=== PATIENT | female | born 1955 | race Caucasian/White ===

== ENCOUNTER → 2021-01-02 | Outpatient (CLI) | payer OTHER | LOC: M.WC 09:51 | PROVIDERS: ATTEND Surgery | DX: T21.35XA Burn of third degree of buttock, initial encounter (principal); T31.10 Burns involving 10-19% of body surface with 0% to 9% third degree burns; E78.5 Hyperlipidemia, unspecified; I10 Essential (primary) hypertension; I73.9 Peripheral vascular disease, unspecified; I89.0 Lymphedema, not elsewhere classified; I25.2 Old myocardial infarction; M19.90 Unspecified osteoarthritis, unspecified site; M10.9 Gout, unspecified; F32.9 Major depressive disorder, single episode, unspecified; F41.9 Anxiety disorder, unspecified; Z85.3 Personal history of malignant neoplasm of breast; Z98.49 Cataract extraction status, unspecified eye; Z87.891 Personal history of nicotine dependence; Z79.82 Long term (current) use of aspirin; X08.8XXA Exposure to other specified smoke, fire and flames, initial encounter; Y93.89 Activity, other specified; Y92.89 Other specified places as the place of occurrence of the external cause; Y99.8 Other external cause status ==

== ENCOUNTER → 2021-01-16 | Outpatient (CLI) | payer OTHER | LOC: M.WC 09:42 | PROVIDERS: ATTEND Surgery | DX: T21.35XD Burn of third degree of buttock, subsequent encounter (principal); T31.10 Burns involving 10-19% of body surface with 0% to 9% third degree burns; E78.5 Hyperlipidemia, unspecified; I10 Essential (primary) hypertension; I73.9 Peripheral vascular disease, unspecified; I89.0 Lymphedema, not elsewhere classified; I25.2 Old myocardial infarction; M19.90 Unspecified osteoarthritis, unspecified site; M10.9 Gout, unspecified; F32.9 Major depressive disorder, single episode, unspecified; F41.9 Anxiety disorder, unspecified; Z85.3 Personal history of malignant neoplasm of breast; Z98.49 Cataract extraction status, unspecified eye; Z87.891 Personal history of nicotine dependence; Z79.82 Long term (current) use of aspirin; X08.8XXD Exposure to other specified smoke, fire and flames, subsequent encounter ==

== ENCOUNTER → 2021-01-23 | Outpatient (CLI) | payer OTHER | LOC: M.WC 09:40 | PROVIDERS: ATTEND Surgery | DX: T21.35XD Burn of third degree of buttock, subsequent encounter (principal); T31.10 Burns involving 10-19% of body surface with 0% to 9% third degree burns; E78.5 Hyperlipidemia, unspecified; I10 Essential (primary) hypertension; I73.9 Peripheral vascular disease, unspecified; I89.0 Lymphedema, not elsewhere classified; I25.2 Old myocardial infarction; M19.90 Unspecified osteoarthritis, unspecified site; M10.9 Gout, unspecified; F32.9 Major depressive disorder, single episode, unspecified; F41.9 Anxiety disorder, unspecified; Z85.3 Personal history of malignant neoplasm of breast; Z98.49 Cataract extraction status, unspecified eye; Z87.891 Personal history of nicotine dependence; Z79.82 Long term (current) use of aspirin; X08.8XXD Exposure to other specified smoke, fire and flames, subsequent encounter ==

== ENCOUNTER → 2021-01-30 | Day surgery (SDC) | payer OTHER ==
[~2021-01-30] MED LIST: ASA81BEC PO; ATENOLOL 25 MG25 M1 PO; B COMPLEX1 EACH PO; CALCIUM CITRAT250 MG PO; FISH OIL 1,001000 M3 PO; FOSAMAX 70 MG T70 MG PO; LOSARTAN POTASS50 MG PO; NEURONTIN 300M300 M2 PO; NORCO5 PO; OXYBUTYNIN 5 MG5 M2 PO; UNICOMPLEX M TA1 TA1 PO; VALACYCLOVIR500 MG PO; VENLAFAXINE HC150 MG PO; VITAMIN D-40010 MCG PO; ZOCOR20 MG PO
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
[2021-01-30 09:54] LABS: HEMATOCRIT 35.9 % (37.0-47.0); HEMOGLOBIN 11.9 gm/dL (12.0-15.0); MCH 29.4 pg (26.0-34.0); MCV 89.3 fL (80.0-100.0); MPV 6.4 fl. (7.2-11.1); RBC 4.03 mil/uL (4.20-5.00); RDW-CV 15.2 % (10.5-14.5); WBC 8.9 thou/uL (4.0-11.0)
[2021-01-30 10:00] LABS: CALCIUM 9.8 mg/dL (8.5-10.1); CREATININE 0.6 mg/dL (0.6-1.3); POTASSIUM 3.4 mmol/L (3.5-5.1)
--- NOTE | 2021-01-30 15:43 | EKG ---
[place] [address] ELECTROCARDIOGRAM REPORT Name: GENNA OCAMPO Room: [facility]#: [id number] Admission: 01/30/21 Attend Phys: Alfa Weeks MD Discharge: Date of : 53 Date of Service: 01/30/21 1041 Report #: [id number] THIS REPORT FOR: //name// [facility] Test Date: 2021-01-30 Test Time: 10:41:51 Pat Name: GENNA OCAMPO Department: Room: Gender: Pharmacy Operations Coordinator: Bulmaro Cerrato : 1955 Requested By: Constance Hand Order Number: [id number] Aldair MD: Cecil Dudley Measurements Intervals [place] Rate: 89 P: 62 CA: 133 QRS: 52 QRSD: 82 T: 29 QT: 367 QTc: 447 Interpretive Statements Sinus rhythm Probable left atrial enlargement Low voltage, extremity leads No previous ECG available for comparison Electronically Signed On 01-30-2021 15:42:53 CDT by Cecil Dudley [email or web address] <ELECTRONICALLY SIGNED> By: Cecil Dudley MD, [facility] 01/30/21 1542 1041 1041 Cecil Dduley MD, [facility] /EPI
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
== END | disposition home or self-care (01) ==
LOC: M.SUR 06:07
PROVIDERS: Anesthesiology; ATTEND Anesthesiology
DX: T21.05XA Burn of unspecified degree of buttock, initial encounter (principal); L90.5 Scar conditions and fibrosis of skin; Z98.890 Other specified postprocedural states; Z79.899 Other long term (current) drug therapy

== ENCOUNTER → 2021-02-06 | Outpatient (CLI) | payer OTHER | LOC: M.WC 09:45 | PROVIDERS: ATTEND Surgery | DX: T21.35XD Burn of third degree of buttock, subsequent encounter (principal); T31.10 Burns involving 10-19% of body surface with 0% to 9% third degree burns; E78.5 Hyperlipidemia, unspecified; I10 Essential (primary) hypertension; I73.9 Peripheral vascular disease, unspecified; I89.0 Lymphedema, not elsewhere classified; I25.2 Old myocardial infarction; M19.90 Unspecified osteoarthritis, unspecified site; M10.9 Gout, unspecified; F32.9 Major depressive disorder, single episode, unspecified; F41.9 Anxiety disorder, unspecified; Z85.3 Personal history of malignant neoplasm of breast; Z98.49 Cataract extraction status, unspecified eye; Z87.891 Personal history of nicotine dependence; Z79.82 Long term (current) use of aspirin; X08.8XXD Exposure to other specified smoke, fire and flames, subsequent encounter ==

== ENCOUNTER → 2021-02-13 | Outpatient (CLI) | payer OTHER | LOC: M.WC 08:21 | PROVIDERS: ATTEND Internal Medicine | DX: T21.35XD Burn of third degree of buttock, subsequent encounter (principal); T31.10 Burns involving 10-19% of body surface with 0% to 9% third degree burns; E78.5 Hyperlipidemia, unspecified; I10 Essential (primary) hypertension; I73.9 Peripheral vascular disease, unspecified; I89.0 Lymphedema, not elsewhere classified; I25.2 Old myocardial infarction; M19.90 Unspecified osteoarthritis, unspecified site; M10.9 Gout, unspecified; F32.9 Major depressive disorder, single episode, unspecified; F41.9 Anxiety disorder, unspecified; Z85.3 Personal history of malignant neoplasm of breast; Z98.49 Cataract extraction status, unspecified eye; Z87.891 Personal history of nicotine dependence; Z79.82 Long term (current) use of aspirin; X08.8XXD Exposure to other specified smoke, fire and flames, subsequent encounter ==

== ENCOUNTER → 2021-02-20 | Outpatient (CLI) | payer OTHER | LOC: M.WC 09:21 | PROVIDERS: ATTEND Internal Medicine | DX: T21.35XD Burn of third degree of buttock, subsequent encounter (principal); T31.10 Burns involving 10-19% of body surface with 0% to 9% third degree burns; E78.5 Hyperlipidemia, unspecified; I10 Essential (primary) hypertension; I73.9 Peripheral vascular disease, unspecified; I89.0 Lymphedema, not elsewhere classified; I25.2 Old myocardial infarction; M19.90 Unspecified osteoarthritis, unspecified site; M10.9 Gout, unspecified; F32.9 Major depressive disorder, single episode, unspecified; F41.9 Anxiety disorder, unspecified; Z85.3 Personal history of malignant neoplasm of breast; Z98.49 Cataract extraction status, unspecified eye; Z87.891 Personal history of nicotine dependence; Z79.82 Long term (current) use of aspirin; X08.8XXD Exposure to other specified smoke, fire and flames, subsequent encounter ==

== ENCOUNTER → 2021-03-06 | Outpatient (CLI) | payer OTHER | LOC: M.WC 09:51 | PROVIDERS: ATTEND Surgery | DX: T21.35XD Burn of third degree of buttock, subsequent encounter (principal); T31.10 Burns involving 10-19% of body surface with 0% to 9% third degree burns; E78.5 Hyperlipidemia, unspecified; I10 Essential (primary) hypertension; I73.9 Peripheral vascular disease, unspecified; I89.0 Lymphedema, not elsewhere classified; I25.2 Old myocardial infarction; M19.90 Unspecified osteoarthritis, unspecified site; M10.9 Gout, unspecified; F32.9 Major depressive disorder, single episode, unspecified; F41.9 Anxiety disorder, unspecified; Z85.3 Personal history of malignant neoplasm of breast; Z87.891 Personal history of nicotine dependence; Z79.82 Long term (current) use of aspirin; X08.8XXD Exposure to other specified smoke, fire and flames, subsequent encounter ==

== ENCOUNTER → 2021-03-13 | Outpatient (CLI) | payer OTHER | LOC: M.WC 09:52 | PROVIDERS: ATTEND Surgery | DX: T21.35XD Burn of third degree of buttock, subsequent encounter (principal); T31.10 Burns involving 10-19% of body surface with 0% to 9% third degree burns; E78.5 Hyperlipidemia, unspecified; I10 Essential (primary) hypertension; I73.9 Peripheral vascular disease, unspecified; I89.0 Lymphedema, not elsewhere classified; I25.2 Old myocardial infarction; M19.90 Unspecified osteoarthritis, unspecified site; M10.9 Gout, unspecified; F32.9 Major depressive disorder, single episode, unspecified; F41.9 Anxiety disorder, unspecified; Z85.3 Personal history of malignant neoplasm of breast; Z87.891 Personal history of nicotine dependence; Z79.82 Long term (current) use of aspirin; X08.8XXD Exposure to other specified smoke, fire and flames, subsequent encounter ==

== ENCOUNTER → 2021-03-20 | Outpatient (CLI) | payer OTHER | LOC: M.WC 09:19 | PROVIDERS: ATTEND Surgery | DX: T21.35XD Burn of third degree of buttock, subsequent encounter (principal); T31.10 Burns involving 10-19% of body surface with 0% to 9% third degree burns; E78.5 Hyperlipidemia, unspecified; I10 Essential (primary) hypertension; I73.9 Peripheral vascular disease, unspecified; I89.0 Lymphedema, not elsewhere classified; I25.2 Old myocardial infarction; M19.90 Unspecified osteoarthritis, unspecified site; M10.9 Gout, unspecified; F32.9 Major depressive disorder, single episode, unspecified; F41.9 Anxiety disorder, unspecified; Z85.3 Personal history of malignant neoplasm of breast; Z87.891 Personal history of nicotine dependence; Z79.82 Long term (current) use of aspirin; X08.8XXD Exposure to other specified smoke, fire and flames, subsequent encounter ==

== ENCOUNTER → 2021-03-27 | Outpatient (CLI) | payer OTHER | LOC: M.WC 09:15 | PROVIDERS: ATTEND Surgery | DX: T21.35XD Burn of third degree of buttock, subsequent encounter (principal); T31.10 Burns involving 10-19% of body surface with 0% to 9% third degree burns; E78.5 Hyperlipidemia, unspecified; I10 Essential (primary) hypertension; I73.9 Peripheral vascular disease, unspecified; I89.0 Lymphedema, not elsewhere classified; I25.2 Old myocardial infarction; M19.90 Unspecified osteoarthritis, unspecified site; M10.9 Gout, unspecified; F32.9 Major depressive disorder, single episode, unspecified; F41.9 Anxiety disorder, unspecified; Z85.3 Personal history of malignant neoplasm of breast; Z87.891 Personal history of nicotine dependence; Z79.82 Long term (current) use of aspirin; X08.8XXD Exposure to other specified smoke, fire and flames, subsequent encounter ==

== ENCOUNTER → 2021-04-10 | Outpatient (CLI) | payer OTHER | LOC: M.WC 09:00 | PROVIDERS: ATTEND Surgery | DX: T21.35XD Burn of third degree of buttock, subsequent encounter (principal); T31.10 Burns involving 10-19% of body surface with 0% to 9% third degree burns; E78.5 Hyperlipidemia, unspecified; I10 Essential (primary) hypertension; I73.9 Peripheral vascular disease, unspecified; I89.0 Lymphedema, not elsewhere classified; I25.2 Old myocardial infarction; M19.90 Unspecified osteoarthritis, unspecified site; M10.9 Gout, unspecified; F32.9 Major depressive disorder, single episode, unspecified; F41.9 Anxiety disorder, unspecified; Z85.3 Personal history of malignant neoplasm of breast; Z87.891 Personal history of nicotine dependence; Z79.82 Long term (current) use of aspirin; X08.8XXD Exposure to other specified smoke, fire and flames, subsequent encounter ==

== ENCOUNTER → 2021-04-17 | Outpatient (CLI) | payer OTHER | LOC: M.WC 09:27 | PROVIDERS: ATTEND Emergency Medicine Undersea and Hyperbaric Medicine | DX: T21.35XD Burn of third degree of buttock, subsequent encounter (principal); T31.10 Burns involving 10-19% of body surface with 0% to 9% third degree burns; E78.5 Hyperlipidemia, unspecified; I10 Essential (primary) hypertension; I73.9 Peripheral vascular disease, unspecified; I89.0 Lymphedema, not elsewhere classified; I25.2 Old myocardial infarction; M19.90 Unspecified osteoarthritis, unspecified site; M10.9 Gout, unspecified; F32.9 Major depressive disorder, single episode, unspecified; F41.9 Anxiety disorder, unspecified; Z85.3 Personal history of malignant neoplasm of breast; Z87.891 Personal history of nicotine dependence; Z79.82 Long term (current) use of aspirin; X08.8XXD Exposure to other specified smoke, fire and flames, subsequent encounter ==

== ENCOUNTER → 2021-04-24 | Outpatient (CLI) | payer OTHER | LOC: M.WC 08:56 | PROVIDERS: ATTEND Surgery | DX: T21.35XD Burn of third degree of buttock, subsequent encounter (principal); T31.10 Burns involving 10-19% of body surface with 0% to 9% third degree burns; E78.5 Hyperlipidemia, unspecified; I10 Essential (primary) hypertension; I73.9 Peripheral vascular disease, unspecified; I89.0 Lymphedema, not elsewhere classified; I25.2 Old myocardial infarction; M19.90 Unspecified osteoarthritis, unspecified site; M10.9 Gout, unspecified; F32.9 Major depressive disorder, single episode, unspecified; F41.9 Anxiety disorder, unspecified; Z85.3 Personal history of malignant neoplasm of breast; Z87.891 Personal history of nicotine dependence; Z79.82 Long term (current) use of aspirin; X08.8XXD Exposure to other specified smoke, fire and flames, subsequent encounter ==

== ENCOUNTER → 2021-05-01 | Outpatient (CLI) | payer OTHER | LOC: M.WC 09:11 | PROVIDERS: ATTEND Surgery | DX: T21.35XD Burn of third degree of buttock, subsequent encounter (principal); T31.10 Burns involving 10-19% of body surface with 0% to 9% third degree burns; E78.5 Hyperlipidemia, unspecified; I10 Essential (primary) hypertension; I73.9 Peripheral vascular disease, unspecified; I89.0 Lymphedema, not elsewhere classified; I25.2 Old myocardial infarction; M19.90 Unspecified osteoarthritis, unspecified site; M10.9 Gout, unspecified; F32.9 Major depressive disorder, single episode, unspecified; F41.9 Anxiety disorder, unspecified; Z85.3 Personal history of malignant neoplasm of breast; Z87.891 Personal history of nicotine dependence; X08.8XXD Exposure to other specified smoke, fire and flames, subsequent encounter ==

== ENCOUNTER → 2021-05-08 | Outpatient (CLI) | payer OTHER | LOC: M.WC 08:47 | PROVIDERS: ATTEND Surgery | DX: T21.35XD Burn of third degree of buttock, subsequent encounter (principal); T31.10 Burns involving 10-19% of body surface with 0% to 9% third degree burns; E78.5 Hyperlipidemia, unspecified; I10 Essential (primary) hypertension; I73.9 Peripheral vascular disease, unspecified; I89.0 Lymphedema, not elsewhere classified; I25.2 Old myocardial infarction; M19.90 Unspecified osteoarthritis, unspecified site; M10.9 Gout, unspecified; F32.9 Major depressive disorder, single episode, unspecified; F41.9 Anxiety disorder, unspecified; Z85.3 Personal history of malignant neoplasm of breast; Z87.891 Personal history of nicotine dependence; X08.8XXD Exposure to other specified smoke, fire and flames, subsequent encounter ==

== ENCOUNTER → 2021-05-15 | Outpatient (CLI) | payer OTHER | LOC: M.WC 08:20 | PROVIDERS: ATTEND Surgery | DX: T21.35XD Burn of third degree of buttock, subsequent encounter (principal); T31.10 Burns involving 10-19% of body surface with 0% to 9% third degree burns; E78.5 Hyperlipidemia, unspecified; I10 Essential (primary) hypertension; I73.9 Peripheral vascular disease, unspecified; I89.0 Lymphedema, not elsewhere classified; I25.2 Old myocardial infarction; M19.90 Unspecified osteoarthritis, unspecified site; M10.9 Gout, unspecified; F32.9 Major depressive disorder, single episode, unspecified; F41.9 Anxiety disorder, unspecified; Z85.3 Personal history of malignant neoplasm of breast; Z87.891 Personal history of nicotine dependence; X08.8XXD Exposure to other specified smoke, fire and flames, subsequent encounter ==